=== PATIENT | female | born 1990 | race Caucasian/White ===

== ENCOUNTER 2016-03-29 10:25 | Emergency (ER) | payer OTHER ==
[~2016-03-29] VITALS: Ht 167.6 cm; Wt 74.3 kg
[~2016-03-29 10:25] MED LIST: AMOXICILLIN500 M1 PO; COLACE100 MG PO; ENDOCET 5-3251 EACH PO; FEOSOL325 MG PO; FLEXERIL10 MG PO; HYDROCODON-ACE1 EAC7 PO; LIDODERM 5% P1 PATCH TD; MOTRIN600 MG PO; MOTRIN800 MG PO; NAPROXEN500 MG PO; PERCOCET 5/31 TABLET PO; PROMETHAZINE HC25 M1 PO; ULTRAM50 MG PO; VICODIN 5-3001 EACH PO; VICODIN,LORT1 TABLET PO; ZOFRAN ODT4 MG PO; ZOFRAN4 MG PO
[2016-03-29 10:29] VITALS: BP 111/80
== END 2016-03-29 11:03 | disposition left against medical advice (07) ==
LOC: EME 10:25
DX: M25.561 Pain in right knee (principal); Z53.21 Procedure and treatment not carried out due to patient leaving prior to being seen by health care provider

== ENCOUNTER 2016-09-19 19:32 | Emergency (ER) | payer OTHER ==
[~2016-09-19] VITALS: Ht 170.2 cm; Wt 75.3 kg
[2016-09-19 19:41] VITALS: BP 138/76
[2016-09-19] MEDS ORDERED: MEDROL DOSEPAK4 MG PO (20:30)
== END 2016-09-19 20:44 | disposition home or self-care (01) ==
LOC: EME 19:32
DX: J04.0 Acute laryngitis (principal); Z88.8 Allergy status to other drugs, medicaments and biological substances
CPT/HCPCS: 87651 90; 99281; 99283; J8540

== ENCOUNTER 2016-11-18 11:21 | Emergency (ER) | payer OTHER ==
[~2016-11-18] VITALS: Ht 172.7 cm; Wt 77.2 kg
[~2016-11-18 11:21] MED LIST changes: +MEDROL DOSEPAK4 MG PO
[2016-11-18 12:21] LABS: BILIRUBIN NEGATIVE; BLOOD NEGATIVE; COLOR YELLOW ((YELLOW)); GLUCOSE (STRIP) NEGATIVE; KETONES NEGATIVE; LEUKOCYTES NEGATIVE; NITRITE NEGATIVE; PROTEIN (STRIP) NEGATIVE; SPECIFIC GRAVITY 1.019 (1.000-1.030); UROBILINOGEN 0.2 MG/DL (0.2-1.0)
[2016-11-18 12:22] LABS: ADD MIUA? NO; UCUL ADDED? NO
[2016-11-18 12:42] LABS: HEMATOCRIT 38.2 % (36.0-46.0); MCH 29.7 PG (29.0-34.0); MCHC 34.6 G/DL (30.0-36.0); MEAN PLAT.VOLUME 10.6 uM^3 (9.5-12.4); PLATELET COUNT 256 K/uL (156-360); RBC DIS.WIDTH-CV 12.5 % (11.8-14.6); RBC DIS.WIDTH-SD 39.2 % (39-53); RED BLOOD COUNT 4.44 M/uL (3.80-5.20); WHITE BLOOD COUNT 7.8 K/uL (4.1-10.2)
[2016-11-18 12:54] LABS: CHLORIDE 107 mEq/L (99-109); POTASSIUM 3.8 mEq/L (3.7-5.4); SODIUM 141 mEq/L (136-147)
[2016-11-18 12:56] LABS: GLUCOSE 97 mg/dL (70-99)
[2016-11-18 12:57] LABS: ANION GAP 14 MEQ/L (2-14)
[2016-11-18 12:58] LABS: TOTAL BILIRUBIN 0.3 mg/dL (0.0-1.0)
[2016-11-18 12:59] LABS: ALKALINE PHOSPHATASE 71 IU/L (3-129)
[2016-11-18 13:00] LABS: GFR ESTIMATE (CALCULATED) > 59 mL/min/
[2016-11-18 13:01] LABS: UREA NITROGEN (BUN) 12 mg/dL (9-23)
[2016-11-18 13:03] LABS: LIPASE 26 U/L (1.0-51.0)
[2016-11-18 13:13] LABS: QUANTITATIVE HCG < 4.0 MIU/ML
[2016-11-18] MEDS ORDERED: BENTYL10 MG PO (14:09)
[2016-11-18] MEDS ORDERED: ZOFRAN ODT4 MG PO (14:09)
[2016-11-18 14:28] VITALS: BP 102/55
== END 2016-11-18 14:29 | disposition home or self-care (01) ==
LOC: EME 11:21
PROVIDERS: Nurse Practitioner Family
DX: R10.30 Lower abdominal pain, unspecified (principal); R11.2 Nausea with vomiting, unspecified; R19.7 Diarrhea, unspecified; Z98.51 Tubal ligation status; F17.200 Nicotine dependence, unspecified, uncomplicated
CPT/HCPCS: 74177; 80053; 81003; 83690; 84702; 85027; 99281; 99284; J1885; J2270; J2405; J7030

== ENCOUNTER 2017-02-10 08:13 | Emergency (ER) | payer BC ==
[~2017-02-10] VITALS: Ht 167.6 cm; Wt 76.7 kg
[~2017-02-10 08:13] MED LIST changes: +BENTYL10 MG PO
[2017-02-10 08:47] LABS: EOSINOPHIL (%) 2.8 % (0-5); EOSINOPHIL COUNT 0.2 K/uL (0-0.3); HEMATOCRIT 36.3 % (36.0-46.0); IMMATURE GRANULOCYTE (%) 0.3 % (0.0-0.7); LYMPHOCYTE COUNT 3.1 K/uL (1.0-2.8); MCH 29.1 PG (29.0-34.0); MCHC 34.2 G/DL (30.0-36.0); MCV 85.2 FL (83-99); MEAN PLAT.VOLUME 9.4 uM^3 (9.5-12.4); MONOCYTE (%) 6.3 % (3-12); MONOCYTE COUNT 0.4 K/uL (0-0.8); NEUTROPHIL (%) 43.8 % (45-76); PLATELET COUNT 277 K/uL (156-360); RBC DIS.WIDTH-SD 40.2 % (39-53); RED BLOOD COUNT 4.26 M/uL (3.80-5.20); WHITE BLOOD COUNT 6.8 K/uL (4.1-10.2)
[2017-02-10 09:10] LABS: CHLORIDE 107 mEq/L (99-109); POTASSIUM 3.5 mEq/L (3.7-5.4); SODIUM 139 mEq/L (136-147)
[2017-02-10 09:12] LABS: GLUCOSE 108 mg/dL (70-99)
[2017-02-10 09:13] LABS: ANION GAP 10 MEQ/L (2-14)
[2017-02-10 09:14] LABS: TOTAL BILIRUBIN 0.1 mg/dL (0.0-1.0)
[2017-02-10 09:15] LABS: ALKALINE PHOSPHATASE 81 IU/L (3-129)
[2017-02-10 09:16] LABS: GFR ESTIMATE (CALCULATED) > 59 mL/min/
[2017-02-10 09:17] LABS: UREA NITROGEN (BUN) 11 mg/dL (9-23)
[2017-02-10 09:24] LABS: QUANTITATIVE HCG < 4.0 MIU/ML
[2017-02-10 10:50] LABS: ADD MIUA? YES; BILIRUBIN NEGATIVE; BLOOD NEGATIVE; COLOR YELLOW ((YELLOW)); GLUCOSE (STRIP) NEGATIVE; KETONES NEGATIVE; LEUKOCYTES NEGATIVE; NITRITE NEGATIVE; PROTEIN (STRIP) NEGATIVE; SPECIFIC GRAVITY 1.023 (1.000-1.030); UROBILINOGEN 0.2 MG/DL (0.2-1.0)
[2017-02-10 10:56] LABS: BACTERIA NONE SEEN /HPF; CALCIUM OXALATE CRYSTALS 1+ /HPF; EPITHELIAL CELLS 2+ /HPF; MUCUS TRACE /LPF; UCUL ADDED? NO; WHITE BLOOD CELLS 0-5 /HPF (0-5)
[2017-02-10] MEDS ORDERED: ZOFRAN ODT4 MG PO (11:10)
[2017-02-10 11:19] VITALS: BP 109/68
== END 2017-02-10 11:20 | disposition home or self-care (01) ==
LOC: EME 08:13
PROVIDERS: Physician Assistant
DX: R19.7 Diarrhea, unspecified (principal); R51 Headache; R42 Dizziness and giddiness; R11.0 Nausea; H53.8 Other visual disturbances; H53.149 Visual discomfort, unspecified; H93.19 Tinnitus, unspecified ear; R10.9 Unspecified abdominal pain; Z98.51 Tubal ligation status; F17.200 Nicotine dependence, unspecified, uncomplicated
CPT/HCPCS: 80053; 81003; 84702; 85025; 99281; 99283

== ENCOUNTER 2017-03-30 15:36 | Emergency (ER) | payer BC ==
[~2017-03-30] VITALS: Ht 167.6 cm; Wt 73.3 kg
[2017-03-30 15:42] VITALS: BP 130/78
== END 2017-03-30 17:03 | disposition left against medical advice (07) ==
LOC: EME 15:36
DX: M25.572 Pain in left ankle and joints of left foot (principal); Z53.21 Procedure and treatment not carried out due to patient leaving prior to being seen by health care provider
CPT/HCPCS: 73630

== ENCOUNTER 2017-08-01 20:44 | Emergency (ER) | payer BC ==
[~2017-08-01] VITALS: Ht 170.2 cm; Wt 72.7 kg
[2017-08-01] MEDS ORDERED: VALIUM5 MG PO (21:30)
[2017-08-01] MEDS ORDERED: MOTRIN800 MG PO (21:30)
[2017-08-01] MEDS ORDERED: NORCO 7.5/321 TABLET PO (21:30)
[2017-08-01 22:20] VITALS: BP 139/98
== END 2017-08-01 22:20 | disposition home or self-care (01) ==
LOC: EME 20:44
DX: M54.41 Lumbago with sciatica, right side (principal); F17.200 Nicotine dependence, unspecified, uncomplicated
CPT/HCPCS: 99281; 99284; J1885

== ENCOUNTER 2017-09-03 15:08 | Emergency (ER) | payer BC ==
[~2017-09-03] VITALS: Ht 170.2 cm; Wt 71.1 kg
[~2017-09-03 15:08] MED LIST changes: +NORCO 7.5/321 TABLET PO; +VALIUM5 MG PO
[2017-09-03 15:43] LABS: HEMATOCRIT 37.7 % (36.0-46.0); HEMOGLOBIN 13.5 G/DL (11.9-15.5); MCH 30.5 PG (29.0-34.0); MCHC 35.8 G/DL (30.0-36.0); MCV 85.3 FL (83-99); PLATELET COUNT 269 K/uL (156-360); RBC DIS.WIDTH-CV 12.7 % (11.8-14.6); RBC DIS.WIDTH-SD 39.1 % (39-53); RED BLOOD COUNT 4.42 M/uL (3.80-5.20); WHITE BLOOD COUNT 16.3 K/uL (4.1-10.2)
[2017-09-03 15:54] LABS: ALBUMIN 4.5 g/dL (3.2-4.8); CHLORIDE 107 mEq/L (99-109); POTASSIUM 3.7 mEq/L (3.7-5.4); SODIUM 139 mEq/L (136-147)
[2017-09-03 15:56] LABS: GLUCOSE 93 mg/dL (70-99); TOTAL PROTEIN 7.4 g/dL (6.4-8.3)
[2017-09-03 15:58] LABS: TOTAL BILIRUBIN 0.5 mg/dL (0.0-1.0)
[2017-09-03 16:00] LABS: ALKALINE PHOSPHATASE 73 IU/L (3-129); CREATININE 0.7 mg/dL (0.6-1.3); GFR ESTIMATE (CALCULATED) > 59 mL/min/
[2017-09-03 16:01] LABS: UREA NITROGEN (BUN) 11 mg/dL (9-23)
[2017-09-03 16:02] LABS: AST (GOT) 13 IU/L (2-34)
[2017-09-03 16:03] LABS: ALT (GPT) 13 IU/L (3-49); LIPASE 18 U/L (1.0-51.0)
[2017-09-03 16:10] LABS: QUANTITATIVE HCG < 4.0 MIU/ML
[2017-09-03] MEDS ORDERED: ZOFRAN4 MG PO (16:15)
[2017-09-03 16:40] VITALS: BP 120/86
== END 2017-09-03 16:42 | disposition home or self-care (01) ==
LOC: EME 15:08
PROVIDERS: Physician Assistant
DX: J04.0 Acute laryngitis (principal); R11.10 Vomiting, unspecified; R05 Cough; J02.9 Acute pharyngitis, unspecified; R10.84 Generalized abdominal pain; F17.200 Nicotine dependence, unspecified, uncomplicated
CPT/HCPCS: 80053; 81003; 83690; 84702; 85027; 99281; 99283

== ENCOUNTER 2017-10-15 21:08 | Emergency (ER) | payer OTHER ==
[~2017-10-15] VITALS: Ht 170.2 cm; Wt 71.6 kg
[2017-10-15] MEDS ORDERED: FLEXERIL10 MG PO (22:41)
[2017-10-15 23:09] VITALS: BP 102/67
== END 2017-10-15 23:11 | disposition home or self-care (01) ==
LOC: EME 21:08
DX: M54.6 Pain in thoracic spine (principal); F17.200 Nicotine dependence, unspecified, uncomplicated; Z88.8 Allergy status to other drugs, medicaments and biological substances
CPT/HCPCS: 71046; 99281; 99284